=== PATIENT | male | born 2000 | race Caucasian/White ===

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

== ENCOUNTER 2021-09-14 17:43 | Emergency (ER) | payer MEDICAID ==
[~2021-09-14] VITALS: Ht 188 cm; Wt 97.5 kg
[~2021-09-14 17:43] MED LIST changes: +TOPROL XL25 MG PO
[2021-09-14] MEDS ORDERED: IBUPROFEN 800800 M1 PO (19:33)
[2021-09-14 19:49] VITALS: BP 134/98
== END 2021-09-14 19:50 | disposition home or self-care (01) ==
LOC: M.ERS 17:43
DX: M25.532 Pain in left wrist (principal); M25.562 Pain in left knee; R60.0 Localized edema; F31.9 Bipolar disorder, unspecified; F90.9 Attention-deficit hyperactivity disorder, unspecified type; Z88.5 Allergy status to narcotic agent; Z88.8 Allergy status to other drugs, medicaments and biological substances; V89.2XXA Person injured in unspecified motor-vehicle accident, traffic, initial encounter; Y93.I9 Activity, other involving external motion; Y92.488 Other paved roadways as the place of occurrence of the external cause; Y99.8 Other external cause status